=== PATIENT | male | born 1945 | race Caucasian/White ===

== ENCOUNTER 2018-04-17 08:36 | Day surgery (SDC) | payer OTHER ==
[~2018-04-17] VITALS: Ht 180.3 cm; Wt 88.4 kg
[~2018-04-17 08:36] MED LIST: ASPI325T25 PO; LIDOCAINE 2% INJ 100 MG/5 ML SDV (FOR ANES.) As Ordered ONE; LISI-538 PO; METO100T5 PO; MULT1TAB10 PO; NS 1,000 ML IV ONE; OMEP20CA3 PO; PROPOFOL 200 MG/20 ML VIAL As Ordered ONE
--- NOTE | 2018-04-17 10:04 | ROOR ---
Patient Name: Rylan Lee Procedure Date: 04/17/2018 9:46 AM Date of : 1945 Age: 72 Room: [facility] Gender: Male Note Status: Finalized Procedure: Colonoscopy Indications: High risk colon cancer surveillance: Personal history of colonic polyps Providers: Roddy Gandhi Jr, MD Referring MD: Doc VAZQUEZ [facility], [facility], Admin. Requesting Provider: Medicines: Propofol per Anesthesia Complications: No immediate complications. Procedure: Pre-Anesthesia Assessment: - Prior to the procedure, a History and Physical was performed, and patient medications and allergies were reviewed. The patient is competent. The risks and benefits of the procedure and the sedation options and risks were discussed with the patient. All questions were answered and informed consent was obtained. Patient identification and proposed procedure were verified by the physician and the nurse in the pre-procedure area and in the procedure room. Mental Status Examination: alert and oriented. Airway Examination: normal oropharyngeal airway and neck mobility. Respiratory Examination: clear to auscultation. CV Examination: normal. ASA Grade Assessment: II - A patient with mild systemic disease. After reviewing the risks and benefits, the patient was deemed in satisfactory condition to undergo the procedure. The anesthesia plan was to use moderate sedation / analgesia (conscious sedation). Immediately prior to administration of medications, the patient was re-assessed for adequacy to receive sedatives. The heart rate, respiratory rate, oxygen saturations, blood pressure, adequacy of pulmonary ventilation, and response to care were monitored throughout the procedure. The physical status of the patient was re-assessed after the procedure. The Colonoscope was introduced through the anus and advanced to the cecum, identified by appendiceal orifice and ileocecal valve. The colonoscopy was performed without difficulty. The patient tolerated the procedure well. The quality of the bowel preparation was adequate. Findings: The rectum, recto-sigmoid colon, sigmoid colon, descending colon, transverse colon, ascending colon, cecum, appendiceal orifice and ileocecal valve appeared normal. Impression: - The rectum, recto-sigmoid colon, sigmoid colon, descending colon, transverse colon, ascending colon, cecum, appendiceal orifice and ileocecal valve are normal. - No specimens collected. Recommendation: - Discharge patient to home (ambulatory). - Repeat colonoscopy in 5 years for surveillance. Roddy Gandhi MD Roddy Gandhi Jr, MD 04/17/2018 10:04:19 AM This report has been signed electronically. Number of Addenda: 0 Note Initiated On: 04/17/2018 9:46 AM Estimated Blood Loss: Estimated blood loss: none.
[2018-04-17 10:39] VITALS: BP 139/67
== END 2018-04-17 10:42 | disposition home or self-care (01) ==
LOC: M OPP 08:36
PROVIDERS: ATTEND Surgery
DX: Z12.11 Encounter for screening for malignant neoplasm of colon (principal); Z86.010 Personal history of colon polyps; Z79.82 Long term (current) use of aspirin; Z79.899 Other long term (current) drug therapy

== ENCOUNTER → 2024-11-05 | Outpatient (CLI) | payer MEDICARE, OTHER ==
[~2024-11-05] MED LIST changes: +ASPI-255 PO; -ASPI325T25 PO; +BUME1TAB3; +CARB25TA9; +DONE10TA90 PO; +ELIQ5TAB; +FERR325T3 PO; +FURO20TA2 PO; -LIDOCAINE 2% INJ 100 MG/5 ML SDV (FOR ANES.) As Ordered ONE; -LISI-538 PO; +LISI20TA33 PO; +LOSA25TA13; +MAGN400T2 PO; +MEMA10TA PO; +METO1TAB87 PO; -NS 1,000 ML IV ONE; +OMEP1CAP73 PO; -OMEP20CA3 PO; +PRAV40TA85 PO; -PROPOFOL 200 MG/20 ML VIAL As Ordered ONE; +TAMS1CAP17
== END ==
LOC: M RAD 06:58
PROVIDERS: ATTEND Internal Medicine Hematology & Oncology
DX: D72.829 Elevated white blood cell count, unspecified (principal); K80.20 Calculus of gallbladder without cholecystitis without obstruction

== ENCOUNTER → 2024-11-24 | Outpatient (CLI) | payer OTHER, MEDICARE ==
[~2024-11-24] MED LIST changes: +HYDR500C3 PO; +LIDOCAINE 1% MDV 20 ML VIAL SC SCH; +NS (Normal Saline) 0.9% 1,000 ML IV SCH
[2024-11-24 09:24] VITALS: TEMP 98
[2024-11-24 10:49] LABS: BASO # 0.3 10^3/uL (0.0-0.2); BASO % 2.1 % (0.0-1.0); EOS # 0.7 10^3/uL (0.0-0.5); EOS % 4.2 % (0.0-3.0); LYMPH # 2.4 10^3/uL (1.5-5.0); LYMPH % 15.1 % (24.0-44.0); MONO # 2.0 10^3/uL (0.0-0.8); MONO % 12.3 % (2.0-8.0); NEUTROPHILS # 10.6 10^3/uL (1.5-8.5); NEUTROPHILS % 65.8 % (36.0-66.0); PLATELET COUNT, AUTOMATED 957 10^3/uL (150-450)
[2024-11-24 11:20] VITALS: BP 171/92; O2SAT 94
== END ==
LOC: M IRPRO 09:10
PROVIDERS: ATTEND Internal Medicine Medical Oncology
DX: D72.829 Elevated white blood cell count, unspecified (principal)

== ENCOUNTER → 2024-12-10 | Outpatient (CLI) | payer MEDICARE, OTHER ==
[~2024-12-10] MED LIST changes: -LIDOCAINE 1% MDV 20 ML VIAL SC SCH; -NS (Normal Saline) 0.9% 1,000 ML IV SCH
== END ==
LOC: M RAD 11:35
PROVIDERS: ATTEND Internal Medicine
DX: N18.9 Chronic kidney disease, unspecified (principal); N28.1 Cyst of kidney, acquired